=== PATIENT | male | born 1955 | race Caucasian/White ===

== ENCOUNTER 2022-10-13 18:58 | Inpatient (IN) | payer OTHER ==
[~2022-10-13] VITALS: Ht 170.2 cm; Wt 68.0 kg
[2022-10-13 19:11] VITALS: BP_SYST 158; PULSE 128; RESP 19; TEMP 96.7; O2SAT 98
[2022-10-13] MEDS ORDERED: ASPIRIN 81 MG TAB.CHEW PO ONE (19:30)
[2022-10-13] MEDS ORDERED: AMLO10TA88 PO (19:44)
[2022-10-13] MEDS ORDERED: HYDR25TA4 PO (19:44)
[2022-10-13] MEDS ORDERED: ATOR10TA68 PO (19:44)
[2022-10-13] MEDS ORDERED: FAMO40TA7 PO (19:44)
[2022-10-13] MEDS ORDERED: dilTIAZem HCL IVP 5 MG/ML VIAL IVP ONE (19:45)
[2022-10-13] MEDS ORDERED: DILTIAZEM HCL 120 MG CAP.SR.24H PO ONE (19:45)
[2022-10-13] MEDS ORDERED: NITROGLYCERIN 1 INCH (GM) OINT. TP ONE (19:45)
[2022-10-13 19:53] LABS: BASOPHILS % (AUTO) 0.7 % (0.0-2.0); EOSINOPHILS # (AUTO) 0.1 K/uL (0.0-0.4); EOSINOPHILS % (AUTO) 1.8 % (0.0-4.0); HEMATOCRIT 45.4 % (36-54); HEMOGLOBIN 15.3 g/dL (14.0-18.0); LYMPHOCYTES # (AUTO) 1.9 K/uL (1.0-5.5); LYMPHOCYTES % (AUTO) 31.8 % (20.5-51.5); MEAN CORPUSCULAR HEMOGLOBIN 32 pg (27-31); MEAN CORPUSCULAR HGB CONC 34 % (32-36); MEAN CORPUSCULAR VOLUME 94 fL (79.0-98.0); MONOCYTES # (AUTO) 0.7 K/uL (0.0-1.0); MONOCYTES % (AUTO) 12.4 % (1.7-9.3); NEUTROPHILS # (AUTO) 3.2 K/uL (1.8-7.7); NEUTROPHILS % (AUTO) 53.3 % (40.0-70.0); PLATELET COUNT (AUTO) 191 K/uL (130-430); RED BLOOD CELL COUNT(AUTO) 4.82 MIL/uL (4.2-6.2); RED CELL DISTRIBUTION WIDTH 14.4 % (9.0-15.0)
[2022-10-13 19:59] LABS: ANION GAP 8 (5-15); CALCIUM 9.2 mg/dL (8.4-11.0); CHLORIDE 100 mmol/L (98-107); CREATININE 1.05 mg/dL (0.55-1.30); GFR AFRICAN AMERICAN 90 mL/min (>90); GLUCOSE 98 mg/dL (70-99); UREA NITROGEN, BLOOD 22 mg/dL (8-21)
[2022-10-13 20:15] LABS: ALANINE AMINOTRANSFERASE 52 U/L (12-78); ASPARTATE AMINOTRANSFERASE 32 U/L (10-37); FREE T4 (FREE THYROXINE) 0.8 ng/dL (0.6-1.6); THYROID STIMULATING HORMONE 2.58 uIu/mL (0.34-4.82); TOTAL BILIRUBIN 0.5 mg/dL (0.0-1.0)
[2022-10-13] MEDS ORDERED: ACETAMINOPHEN 325 MG TABLET PO ONE (20:15)
[2022-10-13] MEDS ORDERED: DICL20GE TP (22:12)
[2022-10-13] MEDS ORDERED: DICL75TA5 PO (22:12)
[2022-10-14] VITALS (8 sets, daily range): BP systolic 108–156; PULSE 60–104; RESP 17–18; TEMP 96.7–98.2; O2SAT 96–100
[2022-10-14] MEDS: METOPROLOL SUCCINATE 25 MG TAB.SR.24H (TOPROL XL) PO SCH ×2 (08:12→20:56)
[2022-10-14] MEDS ORDERED: APIXABAN 2.5 MG TABLET PO SCH (09:00)
[2022-10-14] MEDS ORDERED: LORazepam 2 MG/ML VIAL IVP PRN (09:15)
[2022-10-14] MEDS ORDERED: HYDROcodone/ACETAMIN 10-325 MG TAB PO PRN (09:15)
[2022-10-14] MEDS ORDERED: NALOXONE HCL 0.4 MG/ML AMP (NARCAN) IVP PRN ×2 (09:15)
[2022-10-14] MEDS ORDERED: HYDROcodone/ACETAMIN 5-325 MG TAB (NORCO/ VICODIN) PO PRN (09:15)
[2022-10-14] MEDS ORDERED: ONDANSETRON HCL 4 MG/2 ML VIAL IVP PRN (09:15)
[2022-10-14] MEDS ORDERED: ACETAMINOPHEN 325 MG TABLET PO PRN ×2 (09:15→11:00)
[2022-10-14] MEDS ORDERED: HYDROCHLOROTHIAZIDE 25 MG TABLET (HCTZ) PO ONE (11:00)
[2022-10-14] MEDS ORDERED: FAMOTIDINE 20 MG TABLET PO ONE (11:00)
[2022-10-14] MEDS ORDERED: amLODIPine BESYLATE 10 MG TABLET PO ONE (11:00)
[2022-10-14] MEDS ORDERED: NON-FORMULARY MEDICATION (Diclofenac Sodium (Voltaren Arthritis Pain) 2 GM) TP SCH (13:00)
[2022-10-14] MEDS: NORMAL SALINE 5 ML DISP.SYRIN IVF SCH ×2 (14:00→21:00)
[2022-10-14] MEDS: APIXABAN 2.5 MG TABLET PO SCH (20:58)
[2022-10-14] MEDS ORDERED: DICLOFENAC SODIUM 25 MG TABLET.DR PO SCH (21:00)
[2022-10-14] MEDS ORDERED: ATORVASTATIN 10 MG TABLET PO SCH (21:00)
[2022-10-15 01:56] VITALS: BP_SYST 110; PULSE 50; RESP 18; TEMP 97.4; O2SAT 95
[2022-10-15] MEDS: NORMAL SALINE 5 ML DISP.SYRIN IVF SCH ×2 (06:10→14:00)
[2022-10-15 06:20] LABS: BASOPHILS % (AUTO) 0.7 % (0.0-2.0); EOSINOPHILS # (AUTO) 0.1 K/uL (0.0-0.4); EOSINOPHILS % (AUTO) 2.5 % (0.0-4.0); HEMATOCRIT 46.1 % (36-54); HEMOGLOBIN 15.6 g/dL (14.0-18.0); LYMPHOCYTES # (AUTO) 1.8 K/uL (1.0-5.5); LYMPHOCYTES % (AUTO) 32.1 % (20.5-51.5); MEAN CORPUSCULAR HEMOGLOBIN 32 pg (27-31); MEAN CORPUSCULAR HGB CONC 34 % (32-36); MEAN CORPUSCULAR VOLUME 94 fL (79.0-98.0); MONOCYTES # (AUTO) 0.6 K/uL (0.0-1.0); MONOCYTES % (AUTO) 10.1 % (1.7-9.3); NEUTROPHILS # (AUTO) 3.1 K/uL (1.8-7.7); NEUTROPHILS % (AUTO) 54.6 % (40.0-70.0); PLATELET COUNT (AUTO) 185 K/uL (130-430); RED BLOOD CELL COUNT(AUTO) 4.88 MIL/uL (4.2-6.2); RED CELL DISTRIBUTION WIDTH 14.1 % (9.0-15.0); WHITE BLOOD COUNT (AUTO) 5.7 K/uL (4.8-10.8)
[2022-10-15 06:37] LABS: CALCIUM 8.9 mg/dL (8.4-11.0); CREATININE 1.15 mg/dL (0.55-1.30); PHOSPHORUS 3.4 mg/dL (2.7-4.5)
[2022-10-15 08:00] VITALS: BP_SYST 117; PULSE 69; RESP 18; TEMP 98.7; O2SAT 95
[2022-10-15] MEDS: METOPROLOL SUCCINATE 25 MG TAB.SR.24H (TOPROL XL) PO SCH (08:42)
[2022-10-15] MEDS: APIXABAN 2.5 MG TABLET PO SCH (08:47)
[2022-10-15] MEDS ORDERED: FAMOTIDINE 20 MG TABLET PO SCH (09:00)
[2022-10-15] MEDS ORDERED: amLODIPine BESYLATE 10 MG TABLET PO SCH (09:00)
[2022-10-15] MEDS ORDERED: HYDROCHLOROTHIAZIDE 25 MG TABLET (HCTZ) PO SCH (09:00)
[2022-10-15] MEDS ORDERED: HCT25 PO (10:42)
[2022-10-15] MEDS ORDERED: APIX5TAB PO (10:42)
[2022-10-15] MEDS ORDERED: METO-540 PO (10:42)
[2022-10-15 12:00] VITALS: BP_SYST 125; PULSE 87; RESP 18; TEMP 97.5; O2SAT 96
[2022-10-15 13:45] VITALS: BP_SYST 123; PULSE 75; RESP 18; TEMP 97.9; O2SAT 96
== END 2022-10-15 15:10 | disposition home or self-care (01) | DRG 309 ==
LOC: SED 18:58 → STU 22:11
PROVIDERS: ADMIT Specialist; ATTEND Specialist
DX: I48.91 Unspecified atrial fibrillation (principal); R65.10 Systemic inflammatory response syndrome (SIRS) of non-infectious origin without acute organ dysfunction; K21.9 Gastro-esophageal reflux disease without esophagitis; I10 Essential (primary) hypertension; Z20.822 Contact with and (suspected) exposure to COVID-19; I25.10 Atherosclerotic heart disease of native coronary artery without angina pectoris; E78.5 Hyperlipidemia, unspecified; Z79.01 Long term (current) use of anticoagulants; Z88.8 Allergy status to other drugs, medicaments and biological substances; Z79.899 Other long term (current) drug therapy; I25.2 Old myocardial infarction
CPT/HCPCS: 36415; 71045; 80048; 80053; 83735; 83880; 84100; 84439; 84443; 84484; 85025; 93005; 93306; 96374; 99285; G0378; J3490